=== PATIENT | female | born 2000 | race Caucasian/White ===

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

== ENCOUNTER → 2022-01-06 | Outpatient (CLI) | payer OTHER | END | disposition home or self-care (01) | LOC: LAB SHORT 15:38 → LAB 15:38 | DX: O09.92 Supervision of high risk pregnancy, unspecified, second trimester (principal) | CPT/HCPCS: 87081; 87150 ==

== ENCOUNTER 2022-01-20 05:09 | Inpatient (IN) | payer OTHER ==
[~2022-01-20] VITALS: Ht 167.6 cm; Wt 75.0 kg
[2022-01-20] MEDS ORDERED: PRENATAL TABLE1 EAC2 PO (05:11)
[2022-01-20] MEDS ORDERED: BUSP10 (05:12)
[2022-01-20 07:06] LABS: BASOPHILS ABSOLUTE AUTO 0.06 K/mm3 (0.00-0.23); BASOPHILS PERCENT AUTO 0 % (0-2); EOSINOPHILS ABSOLUTE AUTO 0.26 K/mm3 (0.00-0.68); EOSINOPHILS PERCENT AUTO 2 % (0-6); Hematocrit 39.9 % (33.0-51.0); Hemoglobin 12.9 g/dL (11.5-16.0); IMMATURE GRAN PERCENT AUTO 1 % (0-1); LYMPHOCYTES ABSOLUTE AUTO 4.09 K/mm3 (0.84-5.20); LYMPHOCYTES PERCENT AUTO 26 % (21-46); MONOCYTES ABSOLUTE AUTO 1.05 K/mm3 (0.16-1.47); MONOCYTES PERCENT AUTO 7 % (4-13); Mean Corpuscular HGB 30.4 pg (26.0-34.0); Mean Corpuscular HGB Conc 32.3 g/dL (31.5-36.5); Mean Corpuscular Volume 94 fL (80-100); Mean Platelet Volume 10.2 fL (9.1-12.4); NEUTROPHILS PERCENT AUTO 64 % (41-73); Platelet Count 381 K/mm3 (150-400); RDW Coefficient Variation 13.2 % (11.7-14.2); RDW Standard Deviation 45.4 fL (35.1-46.3); Red Blood Cell Count 4.24 M/mm3 (3.80-5.20); White Blood Cell Count 15.56 K/mm3 (4.00-11.30)
--- NOTE | 2022-01-20 08:19 | NUR ---
01/20/22 0819 Chantel Cabrera DELIVERY OF VIABLE MALE WITH VAC ASSIST . APGARS 9/9. WEIGHT [id number]. CORD BLOOD SENT WITH BABY'S RN. PLACENTA DELIVERED COMPLETE MANUALLY.
--- NOTE | 2022-01-21 07:36 | NUR ---
pt would like to go home today if possible, she reports passing gas, reports she has been up and waiting for SO to come back with her cloths to shower, reports he pain is good, has ABD binder on.
[2022-01-21 07:44] LABS: BASOPHILS ABSOLUTE AUTO 0.04 K/mm3 (0.00-0.23); BASOPHILS PERCENT AUTO 0 % (0-2); EOSINOPHILS ABSOLUTE AUTO 0.15 K/mm3 (0.00-0.68); EOSINOPHILS PERCENT AUTO 1 % (0-6); Hematocrit 33.7 % (33.0-51.0); Hemoglobin 11.1 g/dL (11.5-16.0); IMMATURE GRAN ABSOLUTE AUTO 0.06 K/mm3 (0.00-0.10); IMMATURE GRAN PERCENT AUTO 0 % (0-1); LYMPHOCYTES ABSOLUTE AUTO 2.59 K/mm3 (0.84-5.20); LYMPHOCYTES PERCENT AUTO 18 % (21-46); MONOCYTES ABSOLUTE AUTO 1.12 K/mm3 (0.16-1.47); MONOCYTES PERCENT AUTO 8 % (4-13); Mean Corpuscular HGB 30.8 pg (26.0-34.0); Mean Corpuscular HGB Conc 32.9 g/dL (31.5-36.5); Mean Corpuscular Volume 94 fL (80-100); Mean Platelet Volume 9.6 fL (9.1-12.4); NEUTROPHILS ABSOLUTE AUTO 10.68 K/mm3 (1.96-9.15); NEUTROPHILS PERCENT AUTO 73 % (41-73); Platelet Count 311 K/mm3 (150-400); RDW Coefficient Variation 13.2 % (11.7-14.2); RDW Standard Deviation 45.2 fL (35.1-46.3); White Blood Cell Count 14.64 K/mm3 (4.00-11.30)
[2022-01-21] MEDS ORDERED: IBU800 MG PO (07:54)
[2022-01-21] MEDS ORDERED: OXYC5 PO (07:54)
--- NOTE | 2022-01-21 12:45 | NUR ---
HANNAH FROM [employer] WAS BY TO SEE PT FOR HER DEPRESSION SCORE, PT HAD DEPRESSION LAST BABY AND KNOWS SIGNS TO WATCH FOR. PT WILL TALK TO DR MOY AT 2 WEEK APPOINTMENT ABOUT ANTIDEPRESSENTS. SHE HAD TO USE THEM LAST TIME
--- NOTE | 2022-01-21 14:43 | NUR ---
DC INSTRUCTIONS GONE OVER WITH PT, SO WENT TO [facility] [employer] THAT WOULD BE READY AT 1430, WILL DC HOME WITH FOB RETURNS WITH MEDS. HAS PPFU, JUST NEEDS BANDS AND HUGS DCD.
--- NOTE | 2022-01-21 15:03 | NUR ---
UP AMB IN ROOM, NO PROBLEMS VOIDING, WEARING BINDER, GETTING READY TO DC HOME,
== END 2022-01-21 15:07 | disposition home or self-care (01) | DRG 788 ==
LOC: BC 05:09
PROVIDERS: ADMIT Obstetrics & Gynecology
PROC: 10D00Z1 Extraction of Products of Conception, Low, Open Approach (ICD-10-PCS; principal; 2022-01-20 07:30)
DX: O34.211 Maternal care for low transverse scar from previous cesarean delivery (principal); Z67.40 Type O blood, Rh positive; Z3A.39 39 weeks gestation of pregnancy; Z37.0 Single live birth
CPT/HCPCS: 36415; 85025; 86850; 86900; 86901; A9270; J0690; J1885; J2405; J2765; J3010; J7120

== ENCOUNTER → 2023-05-19 | Outpatient (CLI) | payer OTHER ==
[~2023-05-19] MED LIST changes: +BUSP10; +IBU800 MG PO; +OXYC5 PO; +PRENATAL TABLE1 EAC2 PO
[2023-05-20 12:35] LABS: Candida species (DNA Probe) Negative (NEGATIVE); G. vaginalis (DNA Probe) Positive (NEGATIVE); T. vaginalis (DNA Probe) Negative (NEGATIVE)
== END | disposition home or self-care (01) ==
LOC: LAB 17:07 → LAB SHORT 17:07
PROVIDERS: Advanced Practice Midwife
DX: Z01.419 Encounter for gynecological examination (general) (routine) without abnormal findings (principal); N76.0 Acute vaginitis
CPT/HCPCS: 87480; 87510; 87660

== ENCOUNTER 2024-01-16 17:25 | Emergency (ER) | payer OTHER ==
[~2024-01-16] VITALS: Ht 167.6 cm; Wt 58.1 kg
[2024-01-16 18:04] VITALS: BP 129/87
== END 2024-01-16 18:09 | disposition home or self-care (01) ==
LOC: ER 17:25
DX: R21 Rash and other nonspecific skin eruption (principal); V89.2XXA Person injured in unspecified motor-vehicle accident, traffic, initial encounter; F17.200 Nicotine dependence, unspecified, uncomplicated
CPT/HCPCS: 99283

== ENCOUNTER 2024-09-14 01:48 | Emergency (ER) | payer OTHER ==
[~2024-09-14] VITALS: Ht 165.1 cm; Wt 56.7 kg
[2024-09-14] MEDS ORDERED: HYDROcodone 5-APAP 325 TAB PO ONE (02:25)
[2024-09-14 02:41] VITALS: BP 137/96
[2024-09-14 02:45] LABS: BASOPHILS ABSOLUTE AUTO 0.05 K/mm3 (0.00-0.23); BASOPHILS PERCENT AUTO 0 % (0-2); EOSINOPHILS ABSOLUTE AUTO 0.15 K/mm3 (0.00-0.68); EOSINOPHILS PERCENT AUTO 1 % (0-6); Hematocrit 32.7 % (33.0-51.0); Hemoglobin 10.4 g/dL (11.5-16.0); IMMATURE GRAN ABSOLUTE AUTO 0.04 K/mm3 (0.00-0.10); IMMATURE GRAN PERCENT AUTO 0 % (0-1); LYMPHOCYTES ABSOLUTE AUTO 2.41 K/mm3 (0.84-5.20); LYMPHOCYTES PERCENT AUTO 20 % (21-46); MONOCYTES ABSOLUTE AUTO 0.99 K/mm3 (0.16-1.47); MONOCYTES PERCENT AUTO 8 % (4-13); Mean Corpuscular HGB 25.2 pg (26.0-34.0); Mean Corpuscular HGB Conc 31.8 g/dL (31.5-36.5); Mean Corpuscular Volume 79 fL (80-100); Mean Platelet Volume 8.9 fL (9.1-12.4); NEUTROPHILS ABSOLUTE AUTO 8.52 K/mm3 (1.96-9.15); NEUTROPHILS PERCENT AUTO 70 % (41-73); Platelet Count 324 K/mm3 (150-400); RDW Coefficient Variation 17.2 % (11.7-14.2); RDW Standard Deviation 50.3 fL (35.1-46.3); Red Blood Cell Count 4.13 M/mm3 (3.80-5.20); White Blood Cell Count 12.16 K/mm3 (4.00-11.30)
[2024-09-14 03:03] LABS: Albumin, Blood 3.6 g/dL (3.4-5.0); Albumin/Globulin Ratio 0.9 (0.8-1.8); Bilirubin, Total 0.3 mg/dL (0.1-1.0); Bun/Creatinine Ratio 6.1 (12.0-20.0); Calcium, Blood 8.9 mg/dL (8.5-10.1); Creatinine, Blood 0.65 mg/dL (0.40-1.00); Globulin, Blood 3.9 g/dL (2.2-4.0); Potassium, Blood 3.1 mmol/L (3.5-5.5); Total Protein, Blood 7.5 g/dL (6.4-8.2)
[2024-09-14] MEDS ORDERED: Trimethoprim/Sulfamethoxazole DS Tab PO ONE (03:15)
[2024-09-14] MEDS ORDERED: Diphth,Pertuss(Acell),Tet Vac 0.5 ML VIAL IM ONE (03:15)
[2024-09-14] MEDS ORDERED: CEPHALEXIN250 MG/5 M PO (03:16)
[2024-09-14] MEDS ORDERED: ACETAMINOP160 MG/51 PO (03:19)
[2024-09-14] MEDS ORDERED: IBUP100S PO (03:19)
[2024-09-14] MEDS ORDERED: NS 1,000 ML IV SCH (03:20)
[2024-09-14] MEDS ORDERED: Potassium Chl 20MEQ/Water100ML 100 ML IV ONE (03:20)
[2024-09-14] MEDS ORDERED: SULTRIDS PO (04:01)
== END 2024-09-14 05:52 | disposition home or self-care (01) ==
LOC: ER 01:48
PROVIDERS: Emergency Medicine
DX: L03.011 Cellulitis of right finger (principal); E87.6 Hypokalemia; D72.829 Elevated white blood cell count, unspecified; Z79.4 Long term (current) use of insulin; Z79.899 Other long term (current) drug therapy; Z59.89 Other problems related to housing and economic circumstances; Z79.51 Long term (current) use of inhaled steroids; Z79.1 Long term (current) use of non-steroidal anti-inflammatories (NSAID); Z79.83 Long term (current) use of bisphosphonates
CPT/HCPCS: 10060; 73140; 80053; 83605; 84703; 85025; 90471; 90715; 96365-59; 96366-59; 99283-25; A9270; J3480; J7030

== ENCOUNTER 2025-04-03 11:00 | Emergency (ER) | payer OTHER ==
[~2025-04-03] VITALS: Ht 167.6 cm; Wt 54.4 kg
[~2025-04-03 11:00] MED LIST changes: +ACETAMINOP160 MG/51 PO; +CEPHALEXIN250 MG/5 M PO; +Deltasone 10 mg10 MG PO; +IBUP100S PO; +SULTRIDS PO
[2025-04-03 11:49] LABS: Source, Urine Voided
[2025-04-03 11:54] LABS: Color, Urine Yellow (P-Yellow); Glucose Qualitative, Urine Neg (Neg); Ketones, Urine 1+ (Neg); Leukocyte Esterase, Urine 3+ (Neg); Protein, Urine 2+ (Neg); Specific Gravity, Urine 1.020 (1.003-1.022); Urobilinogen, Urine 1+ (Normal)
[2025-04-03 12:10] VITALS: BP 122/81
[2025-04-03 12:25] LABS: Bilirubin, Urine 1+ (Neg)
[2025-04-03 12:27] LABS: White Blood Cells, Urine 25-50 /hpf (0-5)
[2025-04-03] MEDS ORDERED: CEPH500 PO (13:10)
== END 2025-04-03 13:22 | disposition home or self-care (01) ==
LOC: ER 11:00
PROVIDERS: Emergency Medicine
DX: L02.31 Cutaneous abscess of buttock (principal); F17.200 Nicotine dependence, unspecified, uncomplicated; Z79.899 Other long term (current) drug therapy
CPT/HCPCS: 81001; 81025; 87077; 87086; 87186; 99284